=== PATIENT | female | born 1955 | race African-American/Black ===

== ENCOUNTER 2016-05-30 11:22 | Emergency (ER) | payer OTHER ==
[2016-05-30 11:42] VITALS: TEMP 97.9
[2016-05-30] MEDS ORDERED: HYDROmorphone 1 MG/ML 1 ML SYRINGE IM STA (12:28)
[2016-05-30] MEDS ORDERED: PENICILLIN VK 500MG STARTER 4 TAB BTL PO STA (12:32)
--- NOTE | 2016-05-30 12:37 | ED ---
General Adult HPI - General Chief complaint: Recheck/Abnormal Lab/Rx Stated complaint: all over pain Time Seen by Provider: 05/30/16 12:15 Source: patient, EMS, RN notes reviewed Mode of arrival: EMS Limitations: no limitations - History of Present Illness Initial comments: Patient is a 61-year-old female who presents emergency room today with a chief complaint of increased headache and dental pain. Patient does admit that she uses [facility]. She states she is out of her pain medication. She states she sees pain management. She states she cannot have any pain medication until she sees pain management next week. Patient denies any other complaints. She admits increasing dental pain. She states the headaches are chronic. She states the only way to [facility] tenderness. - Related Data Previous Rx's Medication Instructions Recorded Penicillin V Potassium [Pen Vee K] 500 mg PO QID 10 Days 05/30/16 Allergies Allergy/AdvReac Type Severity Reaction Status Date / Time No Known Allergies Allergy Verified 05/30/16 11:43 Review of Systems ROS Statement: Those systems with pertinent positive or pertinent negative responses have been documented in the HPI. ROS Other: All systems not noted in ROS Statement are negative. General Exam - General Exam Comments Initial Comments: General: The patient is awake and alert, in no distress, and does not appear acutely ill. Eye: Pupils are equal, round and reactive to light, extra-ocular movements are intact. No nystagmus. There is normal conjunctiva bilaterally. No signs of icterus. Ears, nose, mouth and throat: There are moist mucous membranes and no oral lesions. He does have poor dental hygiene with multiple missing teeth. She does have tenderness over the gumline of tooth 1314. No obvious abscess. Uvula midline. Patient's swallows without difficulty. Neck: The neck is supple, there is no tenderness or JVD. Cardiovascular: There is a regular rate and rhythm. No murmur, rub or gallop is appreciated. Respiratory: Lungs are clear to auscultation, respirations are non-labored, breath sounds are equal. No wheezes, stridor, rales, or rhonchi. Musculoskeletal: Normal ROM, no tenderness. Strength 5/5. Sensation intact. Pulses equal bilaterally 2+. Neurological: A&O x 3. CN II-XII intact, There are no obvious motor or sensory deficits. Coordination appears grossly intact. Speech is normal. Skin: Skin is warm and dry and no rashes or lesions are noted. Psychiatric: Cooperative, appropriate mood & affect, normal judgment. Limitations: no limitations Course Vital Signs 05/30/16 11:34 Temperature 97.9 F Pulse Rate 93 Respiratory 20 Rate Blood Pressure 144/68 O2 Sat by Pulse 100 Oximetry Medical Decision Making - Medical Decision Making Patient examined here in the emergency room does admit that these are chronic headaches. States she is out of her pain medication but she is under pain contract cannot receive any narcotic prescription to go home with. Patient given dose of Dilaudid here in the emergency room for her chronic pain. Advised that we cannot send her home with anything. Advised to follow-up with the pain management. Advised to use antibiotics for possible dental abscess and follow-up dentist over the next 2 days. Advised return for any other concerns. Disposition Clinical Impression: Chronic pain, Pain, dental Disposition: HOME SELF-CARE Condition: Good Instructions: Chronic Pain (ED) Additional Instructions: Please follow-up the family doctor/pain management and dentist as discussed. Please return to emergency room if any symptoms increase worsen or for any other concerns. Prescriptions: Penicillin V Potassium [Pen Vee K] 500 mg PO QID 10 Days Time of Disposition: 12:34
[2016-05-30 12:58] VITALS: BP 133/78; PULSE 100; RESP 18
== END 2016-05-30 13:01 | disposition home or self-care (01) ==
LOC: EC 11:22
DX: G89.29 Other chronic pain (principal); R51 Headache; K08.89 Other specified disorders of teeth and supporting structures
CPT/HCPCS: 99283; 96372; J1170

== ENCOUNTER 2016-06-01 01:43 | Emergency (ER) | payer OTHER ==
[2016-06-01 02:08] VITALS: BP 155/78; PULSE 69; RESP 18; TEMP 97.8
[2016-06-01] MEDS ORDERED: GABAPENTIN 400 MG CAP PO STA (02:34)
[2016-06-01] MEDS ORDERED: HYDROmorphone 1 MG/ML 1 ML SYRINGE IM STA (02:35)
--- NOTE | 2016-06-01 02:36 | ED ---
Extremity Problem HPI - General Chief complaint: Extremity Problem,Nontraumatic Stated complaint: SIDE PAIN Time Seen by Provider: 06/01/16 02:06 Source: patient, RN notes reviewed, old records reviewed Mode of arrival: EMS Limitations: no limitations - History of Present Illness Initial comments: Patient is a 61 year old female arrinving via EMS for CC of needing pain medication. Patient reports she had a stoke 6 months ago and has chronic pain down left arm, neck, and tingling. She states that she cannot bend her elbow or shoulder. She stats she takes norco an gabapentin. She has been out from her PCP for one week. Was seen in [facility] a few days ago, given Dilaudid. Patient states that did not help with the pain. Patient reports she is under a pain contract, ther fore cannnot recieve a script for pain medication. Denies any new injury to cause new pain, she states that it is neuropathy down let arm - Related Data Previous Rx's Medication Instructions Recorded Penicillin V Potassium [Pen Vee K] 500 mg PO QID 10 Days 05/30/16 Allergies Allergy/AdvReac Type Severity Reaction Status Date / Time No Known Allergies Allergy Verified 06/01/16 02:08 Review of Systems ROS Statement: Those systems with pertinent positive or pertinent negative responses have been documented in the HPI. ROS Other: All systems not noted in ROS Statement are negative. Past Medical History Past Medical History: CVA/TIA, Diabetes Mellitus, Hyperlipidemia, Hypertension History of Any Multi-Drug Resistant Organisms: None Reported Past Surgical History: Appendectomy Additional Past Surgical History / Comment(s): right ovary Past Psychological History: No Psychological Hx Reported Smoking Status: Former smoker Past Alcohol Use History: None Reported Past Drug Use History: None Reported General Exam Limitations: no limitations Course Vital Signs 06/01/16 02:04 Temperature 97.8 F Pulse Rate 69 Respiratory 18 Rate Blood Pressure 155/78 O2 Sat by Pulse 99 Oximetry Disposition Clinical Impression: Chronic pain Disposition: HOME SELF-CARE Condition: Good Instructions: Chronic Pain (ED) Additional Instructions: Patient advised to follow-up tomorrow morning with primary care provider regards to the pain medication refills. Return to the emergency department if any alarming signs or symptoms occur. Referrals: Nonstaff,Physician [Primary Care Provider] - 1-2 days Time of Disposition: 02:35
[2016-06-01] MEDS ORDERED: HYDROcodone/APAP 10-325MG 1 EACH TAB PO ONE (02:45)
== END 2016-06-01 02:52 | disposition home or self-care (01) ==
LOC: EC 01:43
DX: G89.29 Other chronic pain (principal); M79.602 Pain in left arm; M54.2 Cervicalgia; R20.2 Paresthesia of skin; Z87.891 Personal history of nicotine dependence
CPT/HCPCS: 99284

== ENCOUNTER 2016-06-03 05:44 | Emergency (ER) | payer OTHER ==
[2016-06-03 05:58] VITALS: BP 146/92; PULSE 74; RESP 16; TEMP 97.3
--- NOTE | 2016-06-03 05:58 | ED ---
General Adult HPI - General Stated complaint: tingling/pain Time Seen by Provider: 06/03/16 05:45 Source: RN notes reviewed - History of Present Illness Initial comments: This is a 61-year-old female comes in stating she had a stroke 5 months ago and since that time she's had pain on the left side of her body particularly her arm. Patient states she ran out of all of her pain medicine about a week ago patient states she has a pain contract but she does not see her doctor till . Patient received pain medications on the and the . Patient denies any new pain patient denies any fever or chills. Patient denies any new injury or trauma. Patient denies nausea or vomiting. Patient denies headache patient denies any numbness or new weakness. Patient denies any recent cough. Patient denies chest pain or abdominal pain. Patient denies any difficulty breathing - Related Data Previous Rx's Medication Instructions Recorded Penicillin V Potassium [Pen Vee K] 500 mg PO QID 10 Days 05/30/16 Allergies Allergy/AdvReac Type Severity Reaction Status Date / Time No Known Allergies Allergy Verified 06/01/16 02:08 Review of Systems ROS Statement: Those systems with pertinent positive or pertinent negative responses have been documented in the HPI. ROS Other: All systems not noted in ROS Statement are negative. Past Medical History Past Medical History: CVA/TIA, Diabetes Mellitus, Hyperlipidemia, Hypertension History of Any Multi-Drug Resistant Organisms: None Reported Past Surgical History: Appendectomy Additional Past Surgical History / Comment(s): right ovary Past Psychological History: No Psychological Hx Reported Smoking Status: Former smoker Past Alcohol Use History: None Reported Past Drug Use History: None Reported General Exam - General Exam Comments Initial Comments: GENERAL: Patient is well-developed and well-nourished. Patient is nontoxic and well- hydrated and is in no acute distress. ENT: Neck is soft and supple. No significant lymphadenopathy is noted. Oropharynx is clear. Moist mucous membranes. Neck has full range of motion without eliciting any pain. EYES: The sclera were anicteric and conjunctiva were pink and moist. Extraocular movements were intact and pupils were equal round and reactive to light. Eyelids were unremarkable. PULMONARY: Unlabored respirations. Good breath sounds bilaterally. No audible rales rhonchi or wheezing was noted. CARDIOVASCULAR: There is a regular rate and rhythm without any murmurs gallops or rubs. ABDOMEN: Soft and nontender with normal bowel sounds. No palpable organomegaly was noted. There is no palpable pulsatile mass. SKIN: Skin is clear with no lesions or rashes and otherwise unremarkable. NEUROLOGIC: Patient is alert and oriented x3. Cranial nerves II through XII are grossly intact. Patient has significant contractions of the left arm and very little strength MUSCULOSKELETAL: Normal extremities with adequate strength and full range of motion. LYMPHATICS: No significant lymphadenopathy is noted PSYCHIATRIC: Normal psychiatric evaluation Medical Decision Making - Medical Decision Making I offered the patient could ketorolac she says she didn't want any shots and she stated she didn't want ketorolac because she believes that's a psychiatric medication. I insisted that it was not psychiatric medication she still refused it and she left AMA Disposition Clinical Impression: Chronic pain Disposition: Left Against Medical Advice Time of Disposition: 05:58
== END 2016-06-03 06:05 | disposition left against medical advice (07) ==
LOC: EC 05:44
DX: M79.602 Pain in left arm (principal); G89.29 Other chronic pain; Z87.891 Personal history of nicotine dependence; Z53.20 Procedure and treatment not carried out because of patient's decision for unspecified reasons
CPT/HCPCS: 99283